=== PATIENT | female | born 1980 | race Caucasian/White ===

== ENCOUNTER → 2017-01-27 | Outpatient (CLI) | payer MEDICAID, OTHER ==
[2017-01-29 11:40] LABS: HEPATITIS C QUANTITATION 6160000 IU/mL (.)
[2017-01-30 15:37] LABS: HEPATITIS C GENOTYPE 3 1a (.)
== END ==
LOC: LAB 09:02
PROVIDERS: ATTEND Internal Medicine Pulmonary Disease
DX: B19.20 Unspecified viral hepatitis C without hepatic coma (principal)
CPT/HCPCS: 36415; 81270; 87522

== ENCOUNTER → 2017-03-03 | Outpatient (CLI) | payer OTHER ==
[2017-03-03 14:05] LABS: ABSOLUTE BASOPHILS # (AUTO) 0.1 10^3/uL (0.0-0.2); ABSOLUTE EOSINOPHILS # (AUTO) 0.2 10^3/uL (0.0-0.6); ABSOLUTE LYMPHOCYTES (AUTO) 2.6 10^3/uL (0.5-4.7); ABSOLUTE MONOCYTES (AUTO) 0.6 10^3/uL (0.1-1.4); ABSOLUTE NEUT (AUTO) 3.7 10^3/uL (1.7-8.2); EOSINOPHILS % (AUTO) 3.5 % (0-6); HEMATOCRIT 40.5 % (36.0-47.0); HEMOGLOBIN 13.7 g/dL (12.0-15.5); HGB HCT DIFFERENCE 0.6; LYMPHOCYTES % (AUTO) 35.9 % (13-45); MEAN CORPUSCULAR HEMOGLOBIN 30.4 pg (27.0-33.4); MEAN CORPUSCULAR HGB CONC 33.9 g/dL (32.0-36.0); MEAN CORPUSCULAR VOLUME 90 fl (80-97); MONOCYTES % (AUTO) 8.4 % (3-13); RED BLOOD COUNT 4.52 10^6/uL (3.72-5.28); SEGMENTED NEUTROPHILS % (AUTO) 51.2 % (42-78); WHITE BLOOD COUNT 7.2 10^3/uL (4.0-10.5)
[2017-03-03 14:26] LABS: ALANINE AMINOTRANSFERASE 324 U/L (9-52); ALBUMIN 4.3 g/dL (3.5-5.0); ALKALINE PHOSPHATASE 78 U/L (38-126); ASPARTATE AMINO TRANSFERASE 154 U/L (14-36); BILIRUBIN,DIRECT 0.3 mg/dL (0.0-0.4); BILIRUBIN,TOTAL 0.6 mg/dL (0.2-1.3); TOTAL PROTEIN 8.1 g/dL (6.3-8.2)
[2017-03-05 07:44] LABS: HCV ALPHA 2-MACROGLOBULINS QNT 248 mg/dL (110-276); HCV FIBROSIS SCORE 0.23 (0.00-0.21); HCV FIBROSIS STAGE F0-F1 (.); HCV FIBROSURE ALT P5P 317 IU/L (0-40); HCV FIBROSURE GGT 42 IU/L (0-60); HCV FIBROSURE HAPTOGLOBIN 99 mg/dL (34-200); HCVFIB APOLIPOPROTEIN A-1 129 mg/dL (116-209); NECROINFLAM ACTIVITY GRADE A3-Severe activity (.); NECROINFLAMM ACTIVITY SCORE 0.89 (0.00-0.17)
== END ==
LOC: LAB 13:45
PROVIDERS: ATTEND Family Medicine
DX: B19.20 Unspecified viral hepatitis C without hepatic coma (principal)
CPT/HCPCS: 36415; 80076; 82172; 82247; 82977; 83010; 83883; 84443; 84460; 85025